=== PATIENT | male | born 1980 | race Caucasian/White ===

== ENCOUNTER 2020-06-29 09:09 | Emergency (ER) | payer OTHER | END 2020-06-29 10:58 | disposition home or self-care (01) | LOC: CSHERS 09:09 | DX: S83.92XA Sprain of unspecified site of left knee, initial encounter (principal); F17.210 Nicotine dependence, cigarettes, uncomplicated; W19.XXXA Unspecified fall, initial encounter ==

== ENCOUNTER 2021-11-05 07:48 | Emergency (ER) | payer OTHER | END 2021-11-05 08:01 | disposition home or self-care (01) | LOC: CSHERS 07:48 | DX: R21 Rash and other nonspecific skin eruption (principal); F17.210 Nicotine dependence, cigarettes, uncomplicated | CPT/HCPCS: 99282 ==

== ENCOUNTER 2023-07-24 18:43 | Emergency (ER) | payer OTHER | END 2023-07-24 19:25 | disposition home or self-care (01) | LOC: CSHERS 18:43 | DX: M79.671 Pain in right foot (principal); M79.672 Pain in left foot; F17.210 Nicotine dependence, cigarettes, uncomplicated; X50.3XXA Overexertion from repetitive movements, initial encounter; Y93.01 Activity, walking, marching and hiking; Z59.00 Homelessness unspecified | CPT/HCPCS: 99283 ==